=== PATIENT | female | born 1950 | race Caucasian/White ===

== ENCOUNTER → 2017-06-07 | Outpatient (CLI) | payer OTHER, MEDICARE ==
[~2017-06-07] MED LIST: IOPAMIDOL (ISOVUE-300) 100 ML BTL ONE
== END ==
LOC: FIMAGING 10:26
PROVIDERS: ATTEND Surgery
DX: R10.31 Right lower quadrant pain (principal); R10.32 Left lower quadrant pain
CPT/HCPCS: 74177; Q9967

== ENCOUNTER 2017-06-10 07:11 | Day surgery (SDC) | payer OTHER, MEDICARE ==
--- NOTE | 2017-06-10 07:39 | GHP ---
[f rep st] HISTORY AND PHYSICAL DATE OF ADMISSION: 06/10/2017 CHIEF COMPLAINT: Perirectal abscess, abdominal pain. HISTORY OF PRESENT ILLNESS: The patient is a 66-year-old female who is here for followup on a perianal polyp noticed on followup in March earlier this year for her in-office I and D of a perirenal abscess. In March, she had noticed a small bump but had no complaint of pain, fever, chills, or any other symptoms associated with it. Today, the patient states she is here for abdominal pain in addition to a persistent perirectal abscess. She describes a sharp pain in her lower abdomen , but says the pain is resolved in office today since she has taken pain medication at 3 a.m. this morning. As for her perianal problems, she describes that she has had some leaking from her abscess of dark fluid. She has no complaints today of fever, chills, nausea, vomiting, diarrhea, or constipation. She says her past surgical history is negative for any abdominal or pelvic surgeries. PAST SURGICAL HISTORY: Incision and drainage of a perirectal abscess January 2017. MEDICATION LIST: 1. Augmentin. 2. [place]. SOCIAL HISTORY: Negative fall risk. REVIEW OF SYSTEMS: 10-point review of systems negative except for noted above in the HPI. PHYSICAL EXAMINATION: GENERAL: Well-groomed, pleasant, nontoxic-appearing female. SKIN: Warm, dry. ABDOMEN: Negative for distention, negative for tenderness, negative rigidity, negative guarding, uterus is palpated, appears enlarged. LYMPHS: Negative for inguinal lymphadenopathy. NEURO: Symmetric, alert and oriented x4. PSYCH: Mood and affect are normal. COLORECTAL: No tenderness to touch on either sternal or digital exam, 2 small anal skin tags, no active drainage, perirectal abscess does appear inflamed, erythematous, tender to the touch. ASSESSMENT: Perirectal abscess, abdominal pain. PLAN: The patient was provided a prescription for Percocet for pain, which ____ due to some spasm caused by a perirectal abscess. It was recommended the patient have a CT abdomen and pelvis to help rule out any other issue. Our office will work to have this authorized DIANA. At that time, we will evaluate for surgery. /[id number]/MODL MTDD
[2017-06-10] MEDS ORDERED: cefOXitin SODIUM 2 GM in D5W 100 ML IV ONE (07:55)
[2017-06-10] MEDS ORDERED: LIDOCAINE 1% 2 ML INJ ID PRN (08:02)
[2017-06-10] MEDS ORDERED: LR 1,000 ML IV ONE (08:02)
[2017-06-10] MEDS ORDERED: HYDROGEN PEROXIDE 236 ML BOTTLE TP ONE (08:03)
[2017-06-10] MEDS ORDERED: BUPIVACAINE 0.5% 30 ML SDV ONE (08:03)
[2017-06-10] MEDS ORDERED: METHYLENE BLUE 0.5% 50 MG/10 ML AMP ONE (08:03)
[2017-06-10] MEDS ORDERED: MIDAZOLAM 2 MG/2 ML VIAL IVP ONE (08:33)
--- NOTE | 2017-06-10 09:10 | PDANEPAE ---
ANE History of Present Illness perirectal abscess ANE Past Medical History - Cardiovascular History Hx Hypertension: No Hx Arrhythmias: No Hx Chest Pain: No Hx Coronary Artery / Peripheral Vascular Disease: No Hx CHF / Valvular Disease: No Hx Palpitations: No - Pulmonary History Hx COPD: No Hx Asthma/Reactive Airway Disease: No Hx Recent Upper Respiratory Infection: No Hx Oxygen in Use at Home: No Hx Sleep Apnea: No Sleep Apnea Screening Result - Last Documented: Negative - Neurologic History Hx Cerebrovascular Accident: No Hx Seizures: No Hx Dementia: No - Endocrine History Hx Diabetes: Yes Endocrine History Comment: type 2 diabetes - Renal History Hx Renal Disorders: No - Liver History Hx Hepatic Disorders: No - Neurological & Psychiatric Hx Hx Neurological and Psychiatric Disorders: No - Cancer History Hx Cancer: No - Congenital Disorder History Hx Congenital Disorders: No - GI History Hx Gastrointestinal Disorders: Yes Gastrointestinal History Comment: constipation - Chronic Pain History Chronic Pain: No - Surgical History Prior Surgeries: I&D anal abcess ANE Review of Systems Review of Systems: - Exercise capacity METS (RN): 3 METS ANE Patient History - Allergies Allergies/Adverse Reactions: acetaminophen [From Tylenol-Codeine] Allergy (Verified 04/22/14 17:42) codeine phosphate [From Tylenol-Codeine] Allergy (Verified 04/22/14 17:42) - Home Medications Home Medications: Amlodipine Besylate DAILY06 06/07/17 [Last Taken 06/10/17 05:00] Benazepril HCl DAILY06 06/07/17 [Last Taken 06/10/17 05:00] Clonazepam 06/07/17 [Last Taken 06/09/17 20:00] Colace 06/07/17 [Last Taken 06/08/17] Glipizide BID 06/07/17 [Last Taken 06/09/17 19:00] HYDROCODONE BIT/ACETAMINOPHEN 06/07/17 [Last Taken 06/07/17] Hydrochlorothiazide DAILY06 06/07/17 [Last Taken 06/09/17 06:00] Multivitamin 06/07/17 [Last Taken 06/08/17] Sulfamethoxazole-Tmp DS BID 06/07/17 [Last Taken 06/09/17 21:00] - NPO status NPO Since - Liquids (Date): 06/09/17 NPO Since - Liquids (Time): 22:00 NPO Since - Solids (Date): 06/09/17 NPO Since - Solids (Time): 22:00 - Smoking Hx Smoking Status: Never smoked - Family Anes Hx Family Hx Anesthesia Complications: none ANE Labs/Vital Signs - Vital Signs Blood Pressure: 131/81 Heart Rate: 79 Respiratory Rate: 16 O2 Sat (%): 92 Height: 162.56 cm Weight: 81.647 kg ANE Physical Exam - Airway Neck exam: FROM Mallampati Score: Class 3 Mouth exam: normal dental/mouth exam - Pulmonary Pulmonary: no respiratory distress - Cardiovascular Cardiovascular: regular rate and rhythym - ASA Status ASA Status: II, III ANE Anesthesia Plan Anesthesia Plan: general endotracheal anesthesia, GA w LMA
[2017-06-10] MEDS ORDERED: PROPOFOL 200 MG/20 ML VIAL ONE ×2 (09:11→09:21)
[2017-06-10] MEDS ORDERED: fentaNYL 100 MCG/2 ML INJ ONE ×3 (09:11→10:55)
[2017-06-10] MEDS ORDERED: LIDOCAINE 2% 5 ML SDV ONE (09:11)
[2017-06-10] MEDS ORDERED: ONDANSETRON 4 MG/2 ML VIAL ONE ×2 (09:15→11:02)
[2017-06-10] MEDS ORDERED: ONDANSETRON 4 MG/2 ML VIAL IVP PRN (09:35)
[2017-06-10] MEDS ORDERED: NALOXONE HCL 0.4 MG/ML INJ IVP PRN (09:35)
[2017-06-10] MEDS ORDERED: PROMETHAZINE HCL 25 MG/ML INJ IVP PRN (09:35)
[2017-06-10] MEDS ORDERED: fentaNYL 100 MCG/2 ML INJ IVP PRN (09:35)
[2017-06-10] MEDS ORDERED: OXYCODONE/APAP 5/325 TAB PO PRN (09:58)
--- NOTE | 2017-06-10 10:00 | POSTOPPROG ---
Post Op Note Date of Operation: 06/10/17 Surgeon: Lexis Edwards Anesthesiologist: Jonna Strong Anesthesia: GET(General Endotracheal) Pre-op Diagnosis: recurrent perirectal abscesses Post-op Diagnosis: same Procedure: EUA with excision of perirectal abscess Findings: no definite fistula found Inf/Abcess present in the surg proc area at time of surgery?: Yes Depth: Deep Incisional (Fascial) EBL: Minimal Complications: none
[2017-06-10] MEDS ORDERED: epHEDrine SULFATE 10 MG/ML SYR ONE (10:08)
--- NOTE | 2017-06-10 10:25 | POSTANESTH ---
Post Anesthetic Evaluation Cardiovascular Status: Normal, Stable Respiratory Status: Normal, Stable Level of Consciousness/Mental Status: Can Participate in Eval Pain Control: Adequate, Prn Tx Ordered Nausea/Vomiting Control: Adequate, Prn Tx Ordered Complications Possibly Related to Anesthesia: None Noted
[2017-06-10 12:02] VITALS: BP 128/70; PULSE 65; RESP 14; TEMP 97.3
[2017-06-10 12:47] VITALS: O2SAT 93
--- NOTE | 2017-06-11 14:24 | GOP ---
[f rep st] OPERATIVE REPORT DATE OF OPERATION: SURGEON: Vargas Vora MD PREOPERATIVE DIAGNOSIS: Recurrent perirectal abscess. POSTOPERATIVE DIAGNOSIS: Recurrent perirectal abscess. PROCEDURE PERFORMED: Excision of perirectal abscess and exam under anesthesia. FINDINGS: The patient was found to have a chronic recurrent perirectal abscess, but no definite fist dena tract could be identified. Had multiple fibrous polyps internally from old hemorrhoids, but no s ignificant new hemorrhoids and no fistula tract or fissures or ulcerations could be identified. DESCRIPTION OF PROCEDURE: The patient was brought to the operating room where she received satisfact ory general endotracheal anesthesia by Dr. Strong. She was placed in the lithotomy position, prepped and draped in usual sterile fashion. Some methylene blue and peroxide were injected in the opening the abscess pocket, but no communication to the anal canal could be demonstrated. The pocket was pro bed, and again, it was a similar result. No definite communication to the anal canal could be demons trated. The cervical incision was then made around the abscess I and D site. Full excision of the p ocket was then done down to the sphincter muscle. Hemostasis was obtained with electrocautery. The complete pocket was removed. Again, attempts at finding a fistula tract met with no success. At elida t point, the wound was infiltrated with 0.5% Marcaine and packed with iodoform gauze. She tolerated the procedure well. She was taken to the recovery room in good condition. There were no complicatio ns. /[id number]/MODL
== END 2017-06-10 12:40 | disposition home or self-care (01) ==
LOC: FSGY 07:11
PROVIDERS: ATTEND Surgery
PROC: 0DBQ0ZZ Excision of Anus, Open Approach (ICD-10-PCS; principal; 2017-06-10 08:45)
DX: K61.1 Rectal abscess (principal)
CPT/HCPCS: J0694; J2250; J2405; J2704; J3010; Q9968

== ENCOUNTER → 2017-08-31 | Outpatient (CLI) | payer OTHER, MEDICARE | LOC: FIMAGING 13:04 | PROVIDERS: ATTEND Family Medicine | DX: Z12.31 Encounter for screening mammogram for malignant neoplasm of breast (principal) | CPT/HCPCS: G0202 ==

== ENCOUNTER → 2018-04-06 | Outpatient (CLI) | payer OTHER, MEDICARE | LOC: GIMAGING 18:35 | PROVIDERS: ATTEND Nurse Practitioner Family | DX: M79.89 Other specified soft tissue disorders (principal); M77.31 Calcaneal spur, right foot; M89.9 Disorder of bone, unspecified | CPT/HCPCS: 73610-PO ==

== ENCOUNTER → 2018-08-05 | Outpatient (CLI) | payer OTHER | LOC: FIMAGING 09:09 | PROVIDERS: ATTEND Internal Medicine | DX: R16.0 Hepatomegaly, not elsewhere classified (principal); K76.0 Fatty (change of) liver, not elsewhere classified ==

== ENCOUNTER → 2018-09-10 | Outpatient (CLI) | payer OTHER, MEDICARE | LOC: FIMAGING 14:53 | PROVIDERS: ATTEND Family Medicine | DX: M25.551 Pain in right hip (principal); M25.552 Pain in left hip ==

== ENCOUNTER → 2018-10-01 | Outpatient (CLI) | payer OTHER, MEDICARE | LOC: FIMAGING 13:24 | PROVIDERS: ATTEND Obstetrics & Gynecology | DX: Z12.31 Encounter for screening mammogram for malignant neoplasm of breast (principal); Z13.820 Encounter for screening for osteoporosis; M85.89 Other specified disorders of bone density and structure, multiple sites ==

== ENCOUNTER → 2018-10-16 | Outpatient (CLI) | payer OTHER, MEDICARE | LOC: FIMAGING 11:11 | PROVIDERS: ATTEND Family Medicine | DX: M79.644 Pain in right finger(s) (principal) ==